=== PATIENT | female | born 1945 | race Caucasian/White ===

== ENCOUNTER 2020-08-24 13:20 | Emergency (ER) | payer OTHER, MEDICAID, SELFPAY ==
[2020-08-24 13:29] VITALS: BP 107/67; BP 114/64; PULSE 67; PULSE 68; RESP 16; TEMP 37.2; O2SAT 97; BMI 20.9
--- NOTE | 2020-08-24 13:45 | CT_ITS ---
EXAMINATION: CT HEAD WITHOUT CONTRAST CT CERVICAL SPINE WITHOUT CONTRAST CLINICAL INFORMATION: Fall COMPARISON: 12/11/2019 and 12/29/2010 TECHNIQUE: Multidetector CT imaging of the head and cervical spine was performed without the use of intravenous contrast. Multiplanar reformats are reviewed. DLP: 1241 mGy-cm. FINDINGS: There is no evidence of acute intracranial hemorrhage or territorial infarction. No abnormal mass effect or midline shift is seen. Lopez to white matter differentiation is well preserved. No extra-axial fluid collections are identified. The ventricles are normal in size. Opdu-mn-zqdspcnq chronic white matter microangiopathic changes redemonstrated. Cavernous carotid calcifications. The osseous structures and soft tissues are normal. The mastoid air cells and visualized portions of the paranasal sinuses are well-aerated. Atlantooccipital alignment is maintained. Stable levocurvature of the cervical spine with hypertrophic facet arthropathy on the right, bulky from C3 through C7. Marked discogenic degenerative disease at C5-C6 and C6-C7.. No acute fracture or subluxation. Vertebral body heights are maintained. The cervicomedullary junction and spinal cord are grossly unremarkable. The paraspinal soft tissues are unremarkable. Again seen is a 4 mm nodule at the left lung apex, stable from 12/11/2019 but new from 2010.. CT/CT cervical spine wo con IMPRESSION: No acute intracranial pathology. No cervical spine fracture or subluxation. Stable 4 mm nodule at the left lung apex since November 2019.
--- NOTE | 2020-08-24 14:07 | ED.FALL ---
HPI - Fall General Chief Complaint: Fall Stated Complaint: FALL, HIT HEAD Time Seen by Provider: 08/24/20 13:45 Source: patient Mode of arrival: EMS Limitations: no limitations History of Present Illness HPI Narrative: 74-year-old female came in by ambulance from a [facility], witnessed fall by staff patient was sitting in the wheelchair trying to reach out to a table fell forward hitting her forehead on the edge of the table causing laceration to the right side forehead, patient declined any LOC. complaint: fall Onset (ago): hour(s) (2) Fall from: wheelchair Fall witnessed: yes, by living facility staff Place fall occurred: [facility] Loss of consciousness: none Prolonged down time: no Symptoms prior to fall: none Related Data Allergies Allergy/AdvReac Type Severity Reaction Status Date / Time aspirin [ASPIRIN] Allergy Mild UNKNOWN Unverified 07/10/20 15:20 lisinopril Allergy Unknown cough Verified 12/12/14 00:00 aspirin Allergy Unknown Uncoded 12/27/19 00:00 Review of Systems Review of Systems: All other systems are reviewed and are negative Constitutional: Reports as per HPI and Reports no additional constitutional complaints Eyes: Reports as per HPI and Reports no additional eye complaints Reports system reviewed and no additional complaints, except as documented Cardiovascular: Reports as per HPI and Reports no additional cardiovascular complaints Respiratory: Reports as per HPI and Reports no additional respiratory complaints Gastrointestinal: Reports as per HPI and Reports no additional gastrointestinal complaints Genitourinary: Reports no additional female genitourinary complaints Musculoskeletal: Reports no additional musculoskeletal complaints Skin/Breast: Reports system reviewed and no additional complaints, except as docu Psychiatric: Reports no additional psychiatric complaints Endocrine: Reports no additional endocrine complaints Hematologic/Lymphatic: Reports no additional hematologic/lymphatic complaints Allergic/Immunologic: Reports no additional allergic/immunologic complaints Reports system reviewed and no additional complaints, except as documented and Reports Abnormal speech present [facility] Past Medical History Medical History Osteoarthritis Parkinson disease Social History Social History Alcohol intake: unknown Smoking Status: Never smoker Use of substances other than those prescribed or required for medical reasons: No Advance Directives: No Advance Directives Information Provided: No Physical Exam Vital Signs: Vital Signs: Vital Signs Temp Pulse Resp BP Pulse Ox 08/24/20 14:23 103/73 08/24/20 13:29 98.9 F 67 16 107/67 97 Body Mass Index 20.9 vital signs have been reviewed as normal and appeared to be correct. Blood pressure normal. Heart rate normal. Respiration rate normal. Temperature normal. Oxygen saturation normal. Appearance: Alert. Oriented X3. No acute distress. Head: Normal external exam. Normocephalic. 4 cm laceration to the right side of forehead, no active bleeding, no step-off, Bonita is not involved No Silverman signs noted. No raccoon eyes noted Eyes: PERRLA. EOMI. Conjunctiva and sclera normal. Eyelids normal. ENT: EAC normal. TM's Normal. Pharynx normal. Uvula midline. Moist mucous membranes. No trismus noted. No drooling noted. No muffled voice noted. Neck: Normal inspection. Neck supple. FROM. No adenopathy. Thyroid Normal. No meningeal signs. No neck mass noted. CVS: Normal heart rate and rhythm. Heart sound normal. No murmurs noted. Pulses normal throughout. Respiratory: No respiratory distress. Painless inspiration. Breath sounds normal. No wheezes/rales/rhonchi noted. Chest nontender. No accessory muscle usage noted or decreased air movement noted. Abdomen: Soft and nontender. Bowel sounds normal in all 4 quadrants. No distention noted. No organomegaly noted. No visible injury noted. Back: No CVA tenderness. Full range of motion noted. Skin: Skin warm and dry. Normal skin color. Normal skin turgor. No rashes/lesions/lacerations noted. Extremities: No lower extremity edema. Extremities exhibit normal range of motion. Extremities nontender. left knee with superficial abrasion but full range of motion with no deformity neurovascularly intact. Neuro: Oriented X 3. No motor deficit. No sensory deficit. Reflexes normal. Procedures Laceration Laceration 1: Site: face Side (If applicable): right Size (cm): 4 Description: linear and clean Depth: simple, single layer Skin layer closed with: other ( Dermabond) MDM - Fall MDM Narrative Medical decision making narrative: Assessment and plan. 74-year-old female who had a mechanical fall witnessed at the [facility], patient had normal baseline neurological exam was GCS 15, CT of the head/ C-spine unremarkable. Right forehead laceration that was repaired with Dermabond refer to procedure note. tetanus booster update. Imaging Data head/ C-spine CT: Radiologist's impression: No acute intracranial pathology. No cervical spine fracture or subluxation. Stable 4 mm nodule at the left lung apex since November 2019. Discharge Plan Discharge Clinical Impression: Superficial laceration of face Accident due to mechanical fall without injury Qualifiers: Encounter type: initial encounter Qualified Code(s): W19.XXXA - Unspecified fall, initial encounter Closed head injury Qualifiers: Encounter type: initial encounter Qualified Code(s): S09.90XA - Unspecified injury of head, initial encounter Patient Disposition: [facility] Instructions: Head Injury (ED), Facial Laceration (ED) Referrals: Heber Phipps DO [Primary Care Provider] - 2 days
[2020-08-24 14:23] VITALS: BP 103/73
--- NOTE | 2020-08-24 15:26 | PC.NURSE ---
PATIENT TDAP (IM INJECTION) DID NOT SCAN PROPERLY. HAD TO MANUALLY ENTER NUMBER.
== END 2020-08-24 17:00 | disposition skilled nursing facility (03) ==
PROVIDERS: Emergency Provider Emergency Medicine; PCP Student in an Organized Health Care Education/Training Program
DX: S01.91XA Laceration without foreign body of unspecified part of head, initial encounter (principal); M54.2 Cervicalgia; G44.309 Post-traumatic headache, unspecified, not intractable; M54.5 Low back pain; W01.0XXA Fall on same level from slipping, tripping and stumbling without subsequent striking against object, initial encounter; Y93.01 Activity, walking, marching and hiking; Y92.009 Unspecified place in unspecified non-institutional (private) residence as the place of occurrence of the external cause; Y99.9 Unspecified external cause status; Z23 Encounter for immunization
CPT/HCPCS: 12013; 70450; 72125; 90471; 90700; 99284; 99285

== ENCOUNTER 2021-09-04 12:09 | Emergency (ER) | payer OTHER, MEDICAID, SELFPAY ==
--- NOTE | ~2021-09-04 | XR_ITS ---
EXAMINATION: XR CHEST CLINICAL INFORMATION: A LOC COMPARISON: December 11, 2019 TECHNIQUE: AP portable view of the chest was obtained. FINDINGS: There is bilateral hilar disease present with bronchial wall thickening with the appearance of pulmonary edema of cardiogenic or noncardiogenic etiology. Heart normal size. No pneumothorax or pleural effusion identified. XR/XR chest 1V IMPRESSION: Bilateral central disease with bronchial wall thickening consistent with pulmonary edema of cardiogenic or noncardiogenic etiology.
[2021-09-04 12:25] VITALS: BP 97/50; PULSE 60; RESP 21; TEMP 36.8; O2SAT 96; BMI 22.7
--- NOTE | 2021-09-04 12:30 | ECG_ITS ---
Test Reason : HYPOTENSIVE Blood Pressure : / mmHG Vent. Rate : 061 BPM Atrial Rate : 061 BPM P-R Int : 158 ms QRS Dur : 110 ms QT Int : 442 ms P-R-T Axes : 039 030 015 degrees QTc Int : 444 ms Normal sinus rhythm Incomplete right bundle branch block Borderline ECG When compared with ECG of 14-DEC-2019 02:38, Previous ECG has undetermined rhythm, needs review Questionable change in QRS axis ST no longer depressed in Inferior leads ST no longer depressed in Anterolateral leads T wave amplitude has increased in Lateral leads Referred By: Sav Thurston Electronically Signed By:SHARDA TORRES MD
--- NOTE | 2021-09-04 12:33 | ED.GENADULT ---
HPI - General Adult General Chief complaint: General Medical Stated complaint: ams, hypotensive Time Seen by Provider: 09/04/21 12:30 Source: EMS and RN notes reviewed Limitations: altered mental status History of Present Illness HPI narrative: This is a 75-year-old female who sent in from a alf facility/dementia Unit for increased lethargy. The patient usually his verbal and participate in activities but this morning was found to not be talking and seemed lethargic. EMS reports that her blood pressure was initially low and she was given a normal saline bolus with improvement in her blood pressure. EMS reported that her pre-hospital EKG showed an incomplete right bundle-branch block otherwise appeared normal. She has not had any known fever. Patient herself is unable to give any history due to mental status Related Data Home Medications Medication Instructions Recorded Confirmed calcium citrate 250 mg PO DAILY 09/04/21 09/04/21 carbidopa 25 mg-levodopa 100 mg 2 tab PO Q4H 09/04/21 09/04/21 tablet (Sinemet) carvedilol 6.25 mg tablet 6.25 mg PO BID 09/04/21 09/04/21 docusate sodium 100 mg capsule 100 mg PO BEDTIME 09/04/21 09/04/21 (Colace) gabapentin 300 mg capsule 300 mg PO BEDTIME 09/04/21 09/04/21 glucosamine 375 ga-qzbweidqv-ack 1 tab PO BID 09/04/21 09/04/21 no1 500 mg-C 15 mg-vahe 0.5 mg tablet (Ergwkxfvlsn-Fxijgrxcqgz-ZQR Complex) ivermectin 3 mg tablet 12 mg PO ONCE 09/04/21 09/04/21 lorazepam 0.5 mg tablet (Ativan) 0.5 mg PO TID 09/04/21 09/04/21 magnesium gluconate 500 mg tablet 250 mg PO BEDTIME 09/04/21 09/04/21 melatonin 3 mg tablet 6 mg PO BEDTIME 09/04/21 09/04/21 multivitamin 1 tab PO DAILY 09/04/21 09/04/21 nutritional supplements 1 ea PO BID@1000,1600 09/04/21 09/04/21 nystatin 100,000 unit/gram topical 1 appl TOPICAL BID PRN 09/04/21 09/04/21 powder omeprazole 20 mg capsule,delayed 20 mg PO DAILY@0630 09/04/21 09/04/21 release potassium chloride 10 mEq 10 meq PO DAILY 09/04/21 09/04/21 tablet,extended release pramipexole 0.5 mg tablet 0.5 mg PO TID 09/04/21 09/04/21 quetiapine 25 mg tablet (Seroquel) 25 mg PO TID 09/04/21 09/04/21 risedronate 35 mg tablet (Actonel) 35 mg PO FR 09/04/21 09/04/21 ropinirole 1 mg tablet 1 mg PO QID 09/04/21 09/04/21 sertraline 50 mg tablet 50 mg PO DAILY 09/04/21 09/04/21 simethicone 125 mg capsule (Gas 250 mg PO BID 09/04/21 09/04/21 Relief (simethicone)) Allergies Allergy/AdvReac Type Severity Reaction Status Date / Time aspirin [ASPIRIN] Allergy Mild UNKNOWN Unverified 07/10/20 15:20 lisinopril Allergy Unknown cough Verified 12/12/14 00:00 aspirin Allergy Unknown Uncoded 12/27/19 00:00 Review of Systems Review of Systems: Yes Unobtainable due to mental condition Constitutional: Constitutional: Reports weakness Neurologic: Denies Sensory deficit (Neuro) and Reports weakness Comments: Speaking less PMFSH Past Medical History Medical History Osteoarthritis Parkinson disease Social History Social History Alcohol intake: unknown Advance Directives: No Advance Directives Information Provided: No Physical Exam Vital Signs: Vital Signs: Last Vital Signs Temp 98.8 F 09/04/21 14:15 Pulse 67 09/04/21 14:21 Resp 17 09/04/21 14:21 BP 137/63 09/04/21 14:21 Pulse Ox 98 09/04/21 14:21 Body Mass Index 22.7 Const: Other: Patient noncooperative, does not keep eyes open, closes them tightly upon attempted examination. Does not open mouth. Visualized teeth and tongue seem somewhat dry General: no acute distress and alert HENMT: Head: Yes normal to inspection Eyes: General: appearance normal, both eyes and all related structures Eyelids: Yes eyelids normal Conjunctivae: conjunctivae normal Pupils: Equal, round and reactive pupils present Neck: Neck: Yes normal visual inspection and Yes supple Chest: Chest palpation & inspection: normal inspection of the chest Resp: Effort & Inspection: normal respiratory effort Auscultation: clear to auscultation bilaterally Cardio: Rate: regular rate Rhythm: regular rhythm Heart sounds: S1 normal heart sound present, S2 normal heart sound present, no gallops, no murmurs and no rubs GI: Palpation (GI): Soft to palpation, nontender and Other GI palpation findings present (Non-distended) Auscultation: normal bowel sounds Skin: General skin exam: no rashes or lesions noted Neuro: General: no focal motor deficits and CN's II-XI intact bilaterally Cranial nerves: Yes Equal, round and reactive pupils present Cognition (Neuro): normal cognition Motor exam (neuro): 5/5 motor strength present throughout Sensory Exam: No Sensory deficit (Neuro) Extrem: General: Yes normal to inspection and Yes no pedal edema Psych: Appearance: grossly normal Affect: normal affect Medical Decision Making MDM Narrative Medical decision making narrative: Patient with borderline hypotension, improved after normal saline IV bolus. Patient also noted to be more lethargic today. Patient's primary care physician at her facility, Dr. Dyer, called and stated that she has been getting worse and feeling for some time. He stated that if the workup was negative and that of her vital signs improved, that discharge back to her facility would be recommended patient has no evidence of UTI, pneumonia. BUN to creatinine ratio is mildly elevated but she has been rehydrated with normal saline. Lab Data Lab results reviewed: Yes I reviewed the patient's lab results. Result diagrams: 09/04/21 12:54 09/04/21 12:54 Labs: Lab Results 09/04/21 09/04/21 09/04/21 Range/Units 12:54 12:54 12:58 WBC 7.2 (4.8-10.8) X10*3/uL RBC 3.39 L (4.20-5.50) X10*6/uL Hgb 10.1 L (12.0-16.0) g/dl Hct 31.8 L (37.0-47.0) % MCV 93.8 (80.0-98.0) fL MCH 29.8 (27.0-33.0) pg MCHC 31.8 (31.0-35.0) g/dl RDW 13.6 (11.0-16.0) % Plt Count 204 (160-400) X10*3/uL MPV 9.8 (9.4-12.3) fL Immature Gran % (Auto) 0.3 (0.0-0.4) % Neut % (Auto) 66.7 (45-73) % Lymph % (Auto) 21.1 (20-40) % [place] % (Auto) 11.3 H (2-11) % Eos % (Auto) 0.3 (0-4) % Baso % (Auto) 0.3 (0-2) % Lymph # (Auto) 1.5 (1.2-4.9) X10*3/uL [place] # (Auto) 0.8 (0.1-1.2) X10*3/uL Eos # (Auto) 0.0 (0.0-0.4) X10*3/uL Baso # (Auto) 0.0 (0.0-0.2) X10*3/uL Abs Immat Gran (auto) 0.02 (0.00-0.03) X10*3/uL Absolute Neuts (auto) 4.8 (2.0-8.3) x10*3/uL Absolute Nucleated RBC 0.000 (0.0-0.012) X10*3/uL Nucleated RBC % (auto) 0.0 (0.0-0.2) /100WBC Sodium 140 (135-145) mmol/L Potassium 3.7 (3.3-5.1) mmol/L Chloride 108 (96-108) mmol/L Carbon Dioxide 23 (22-29) mmol/L Anion Gap 13 (12-20) BUN 30 H (9-16) mg/dL Creatinine 0.72 (0.5-1.4) mg/dL Estim Creat Clear Calc 50.0 Estimated GFR > 60 Random Glucose 80 (60-115) mg/dL Calcium 8.3 L (8.4-10.2) mg/dL Total Bilirubin 1.8 H (0.0-1.0) mg/dL AST 6 (5-31) U/L ALT < 6 (0-31) U/L Alkaline Phosphatase 61 (39-117) U/L Total Protein 5.6 L (6.5-8.0) g/dL Albumin 3.3 L (3.5-5.0) g/dL Urine Color YELLOW Urine Appearance CLEAR Urine pH 6.0 (5.0-8.0) Ur Specific [place] >= 1.030 H (1.005-1.025) Urine Protein TRACE (NEG-TRACE) MG/DL Urine Glucose (UA) NEG (NEG) MG/DL Urine Ketones 15 (NEG) MG/DL Urine Blood NEG (NEG) Urine Nitrite NEG (NEG) Ur Leukocyte Esterase NEG (NEG) COVID-19 (YUSEF) (Negative) COVID-19 Clin Com 09/04/21 Range/Units 14:19 WBC (4.8-10.8) X10*3/uL RBC (4.20-5.50) X10*6/uL Hgb (12.0-16.0) g/dl Hct (37.0-47.0) % MCV (80.0-98.0) fL MCH (27.0-33.0) pg MCHC (31.0-35.0) g/dl RDW (11.0-16.0) % Plt Count (160-400) X10*3/uL MPV (9.4-12.3) fL Immature Gran % (Auto) (0.0-0.4) % Neut % (Auto) (45-73) % Lymph % (Auto) (20-40) % [place] % (Auto) (2-11) % Eos % (Auto) (0-4) % Baso % (Auto) (0-2) % Lymph # (Auto) (1.2-4.9) X10*3/uL [place] # (Auto) (0.1-1.2) X10*3/uL Eos # (Auto) (0.0-0.4) X10*3/uL Baso # (Auto) (0.0-0.2) X10*3/uL Abs Immat Gran (auto) (0.00-0.03) X10*3/uL Absolute Neuts (auto) (2.0-8.3) x10*3/uL Absolute Nucleated RBC (0.0-0.012) X10*3/uL Nucleated RBC % (auto) (0.0-0.2) /100WBC Sodium (135-145) mmol/L Potassium (3.3-5.1) mmol/L Chloride (96-108) mmol/L Carbon Dioxide (22-29) mmol/L Anion Gap (12-20) BUN (9-16) mg/dL Creatinine (0.5-1.4) mg/dL Estim Creat Clear Calc Estimated GFR Random Glucose (60-115) mg/dL Calcium (8.4-10.2) mg/dL Total Bilirubin (0.0-1.0) mg/dL AST (5-31) U/L ALT (0-31) U/L Alkaline Phosphatase (39-117) U/L Total Protein (6.5-8.0) g/dL Albumin (3.5-5.0) g/dL Urine Color Urine Appearance Urine pH (5.0-8.0) Ur Specific [place] (1.005-1.025) Urine Protein (NEG-TRACE) MG/DL Urine Glucose (UA) (NEG) MG/DL Urine Ketones (NEG) MG/DL Urine Blood (NEG) Urine Nitrite (NEG) Ur Leukocyte Esterase (NEG) COVID-19 (YUSEF) Negative (Negative) COVID-19 Clin Com See Note Imaging Data Chest x-ray: Radiologist's impression: IMPRESSION: Bilateral central disease with bronchial wall thickening consistent with pulmonary edema of cardiogenic or noncardiogenic etiology. ECG Data Attestation: I personally reviewed and interpreted this ECG as follows: Interpretation: Sinus rhythm with a rate of 61. Incomplete right bundle-branch block. No michelle ST elevation or depression. No ectopy Discharge Plan Discharge Clinical Impression: Dehydration Patient Disposition: Xfer LTC Instructions: Dehydration (ED) Additional Instructions: Try to encourage p.o. intake including fluids. Follow-up with primary care physician. Return for any worsened symptoms. Prescriptions: No Action multivitamin Tablet 1 tab PO DAILY RF: 0 quetiapine [Seroquel] 25 mg Tablet 25 mg PO TID RF: 0 carvedilol 6.25 mg Tablet 6.25 mg PO BID RF: 0 ropinirole 1 mg Tablet 1 mg PO QID RF: 0 Resource Breeze Liquid 1 ea PO BID@1000,1600 RF: 0 simethicone [Gas Relief (simethicone)] 125 mg Capsule 250 mg PO BID RF: 0 potassium chloride 10 mEq Tablet Extended Release 10 meq PO DAILY RF: 0 melatonin 3 mg Tablet 6 mg PO BEDTIME RF: 0 magnesium gluconate 500 mg Tablet 250 mg PO BEDTIME RF: 0 pramipexole 0.5 mg Tablet 0.5 mg PO TID RF: 0 lorazepam [Ativan] 0.5 mg Tablet 0.5 mg PO TID RF: 0 docusate sodium [Colace] 100 mg Capsule 100 mg PO BEDTIME RF: 0 gabapentin 300 mg Capsule 300 mg PO BEDTIME RF: 0 omeprazole [Prilosec] 20 mg Capsule,Delayed Release(Dr/Ec) 20 mg PO DAILY@0630 RF: 0 nystatin 100,000 unit/gram Powder 1 appl TOPICAL BID PRN (Reason: ALTERATION IN SKIN INTEGRITY) RF: 0 carbidopa-levodopa [Sinemet] 25-100 mg Tablet 2 tab PO Q4H RF: 0 sertraline 50 mg Tablet 50 mg PO DAILY RF: 0 risedronate [Actonel] 35 mg Tablet 35 mg PO FR RF: 0 calcium citrate 250 mg calcium Tablet 250 mg PO DAILY RF: 0 Qknxmgujmln-Sjxvs-IUE Complex 080-919-11-0.5 mg Tablet 1 tab PO BID RF: 0 ivermectin 3 mg Tablet 12 mg PO ONCE RF: 0
[2021-09-04] MEDS: 0.9 % Sodium Chloride 500 ML IV ×2 (12:37→14:21)
[2021-09-04 13:04] LABS: MANUAL DIFF FLAG NO
[2021-09-04 13:06] LABS: Basophils Percent Auto 0.3 % (0-2); Eosinophils Percent Auto 0.3 % (0-4); Hematocrit 31.8 % (37.0-47.0); Hemoglobin 10.1 g/dl (12.0-16.0); Imm Gran Abs Auto 0.02 X10*3/uL (0.00-0.03); Imm Gran Pct Auto 0.3 % (0.0-0.4); Lymphocytes Absolute Auto 1.5 X10*3/uL (1.2-4.9); Lymphocytes Percent Auto 21.1 % (20-40); Mean Corpuscular HGB Conc 31.8 g/dl (31.0-35.0); Mean Corpuscular Hemoglobin 29.8 pg (27.0-33.0); Mean Corpuscular Volume 93.8 fL (80.0-98.0); Mean Platelet Volume 9.8 fL (9.4-12.3); Monocytes Absolute Auto 0.8 X10*3/uL (0.1-1.2); Monocytes Percent Auto 11.3 % (2-11); Neutrophils Absolute Auto 4.8 x10*3/uL (2.0-8.3); Neutrophils Percent Auto 66.7 % (45-73); Platelet Count 204 X10*3/uL (160-400); Red Blood Count 3.39 X10*6/uL (4.20-5.50); Red Cell Distribution Width 13.6 % (11.0-16.0); White Blood Count 7.2 X10*3/uL (4.8-10.8)
[2021-09-04 13:20] LABS: Appearance Urine CLEAR; Color Urine YELLOW; Glucose Urine UA NEG (NEG); Leukocyte Esterase Urine NEG (NEG); Nitrite Urine NEG (NEG); Specific Gravity - Urine >= 1.030 (1.005-1.025); Urine Blood NEG (NEG); Urine Ketones 15 MG/DL (NEG); Urine Protein TRACE MG/DL (NEG-TRACE)
[2021-09-04 13:23] LABS: Alanine Aminotransferase < 6 U/L (0-31); Albumin Level 3.3 g/dL (3.5-5.0); Alkaline Phosphatase 61 U/L (39-117); Anion Gap 13 (12-20); Aspartate Amino Transferase 6 U/L (5-31); Bilirubin Total 1.8 mg/dL (0.0-1.0); Blood Urea Nitrogen 30 mg/dL (9-16); Calcium 8.3 mg/dL (8.4-10.2); Carbon Dioxide 23 mmol/L (22-29); Chloride 108 mmol/L (96-108); Estimated Glomerular Filt Rate > 60; Glucose Random 80 mg/dL (60-115); Potassium 3.7 mmol/L (3.3-5.1); Sodium 140 mmol/L (135-145); Total Protein 5.6 g/dL (6.5-8.0)
--- NOTE | 2021-09-04 13:36 | PHA.MEDREC ---
Pharmacy Consult ? Medication Reconciliation Pharmacy has completed the medication reconciliation. patient came from [facility] with a medication list. Patient has an order for Ivermectin 12 mg for a rash. Last dose was given 09/02/2021, and looks like next dose is to be given 09/16/2021 Chantal Archer, JoseD
[2021-09-04 14:15] VITALS: BP 89/52; PULSE 52; RESP 14; TEMP 37.1; O2SAT 96
[2021-09-04 14:21] VITALS: BP 137/63; PULSE 67; RESP 17; O2SAT 98
[2021-09-04 14:51] LABS: COVID-19 Test Negative (Negative); IDNOW Serial# 9DD0AD1C
== END 2021-09-04 18:41 ==
PROVIDERS: Emergency Provider Emergency Medicine; PCP Family Medicine
DX: E86.0 Dehydration (principal); G20 Parkinson's disease; F02.80 Dementia in other diseases classified elsewhere, unspecified severity, without behavioral disturbance, psychotic disturbance, mood disturbance, and anxiety; I45.10 Unspecified right bundle-branch block; Z79.899 Other long term (current) drug therapy; Z20.822 Contact with and (suspected) exposure to COVID-19
CPT/HCPCS: 36415; 71045; 80053; 81003; 85025; 87635; 93005; 96360; 96361; 99284

== ENCOUNTER 2022-01-13 10:28 | Emergency (ER) | payer OTHER, MEDICAID, SELFPAY ==
[2022-01-13 10:37] VITALS: BP 92/60; PULSE 60; O2SAT 84
[2022-01-13] MEDS: Naloxone HCl 0.4 MG/ML VIAL 0.2 MG IVPUSH (10:40)
[2022-01-13 10:41] VITALS: BP 103/64; PULSE 63; RESP 4; TEMP 36.1; O2SAT 98; BMI 17.6
[2022-01-13 10:49] LABS: Glucose, Whole Blood 83 mg/dL (60-115)
--- NOTE | 2022-01-13 10:49 | ED_ITS ---
HPI - General Adult General Chief complaint: Upper Respiratory Symptoms Stated complaint: SOB,80% RA TO 99% ON 15L NRB Time Seen by Provider: 01/13/22 10:37 Source: family and EMS Mode of arrival: EMS Limitations: altered mental status History of Present Illness HPI narrative: History by EMS and brother Michael. Patient with end stage parkinsonism, degenerative joint disease, dementia and failure to thrive on hospice. She received 5mg of morphine and ativan and had respiratory failure and because her MOLST was not updated the patient was transferred. Discussed with brother and I filled out the MOLST Onset (ago): minute(s) Severity: severe Related Data Home Medications Medication Instructions Recorded Confirmed calcium citrate 250 mg PO DAILY 09/04/21 09/04/21 carbidopa 25 mg-levodopa 100 mg 2 tab PO Q4H 09/04/21 09/04/21 tablet (Sinemet) carvedilol 6.25 mg tablet 6.25 mg PO BID 09/04/21 09/04/21 docusate sodium 100 mg capsule 100 mg PO BEDTIME 09/04/21 09/04/21 (Colace) gabapentin 300 mg capsule 300 mg PO BEDTIME 09/04/21 09/04/21 glucosamine 375 by-zxxutftqb-tzb 1 tab PO BID 09/04/21 09/04/21 no1 500 mg-C 15 mg-vahe 0.5 mg tablet (Qgtngswrwiv-Tdmzfmltsko-BMP Complex) ivermectin 3 mg tablet 12 mg PO ONCE 09/04/21 09/04/21 lorazepam 0.5 mg tablet (Ativan) 0.5 mg PO TID 09/04/21 09/04/21 magnesium gluconate 500 mg tablet 250 mg PO BEDTIME 09/04/21 09/04/21 melatonin 3 mg tablet 6 mg PO BEDTIME 09/04/21 09/04/21 multivitamin 1 tab PO DAILY 09/04/21 09/04/21 nutritional supplements 1 ea PO BID@1000,1600 09/04/21 09/04/21 nystatin 100,000 unit/gram topical 1 appl TOPICAL BID PRN 09/04/21 09/04/21 powder omeprazole 20 mg capsule,delayed 20 mg PO DAILY@0630 09/04/21 09/04/21 release potassium chloride 10 mEq 10 meq PO DAILY 09/04/21 09/04/21 tablet,extended release pramipexole 0.5 mg tablet 0.5 mg PO TID 09/04/21 09/04/21 quetiapine 25 mg tablet (Seroquel) 25 mg PO TID 09/04/21 09/04/21 risedronate 35 mg tablet (Actonel) 35 mg PO FR 09/04/21 09/04/21 ropinirole 1 mg tablet 1 mg PO QID 09/04/21 09/04/21 sertraline 50 mg tablet 50 mg PO DAILY 09/04/21 09/04/21 simethicone 125 mg capsule (Gas 250 mg PO BID 09/04/21 09/04/21 Relief (simethicone)) Allergies Allergy/AdvReac Type Severity Reaction Status Date / Time aspirin [ASPIRIN] Allergy Mild UNKNOWN Unverified 07/10/20 15:20 lisinopril Allergy Unknown cough Verified 12/12/14 00:00 aspirin Allergy Unknown Uncoded 12/27/19 00:00 Review of Systems Review of Systems: Yes Unobtainable due to mental status [facility] Past Medical History Medical History Osteoarthritis Parkinson disease Social History Social History Alcohol intake: unknown Patient Tobacco Use Status: Tobacco use Unknown Use of substances other than those prescribed or required for medical reasons: No Advance Directives: Yes Advance Directives on File: Yes Advance Directives Date on File: 01/13/22 Physical Exam ED Vital Signs: Vital Signs - 24 hr 01/13/22 10:41 01/13/22 11:14 Temperature 97 F Pulse Rate 63 58 Respiratory Rate 4 L 12 Blood Pressure 103/64 Pulse Oximetry 98 99 BMI result Body Mass Index 17.6 Const Other: Frail cachectic, with respirations of 6 HENMT Other: pinpoint pupils Resp Auscultation: clear to auscultation bilaterally Cardio Rate: regular rate Rhythm: regular rhythm Heart sounds: S1 normal heart sound present and S2 normal heart sound present GI Other: scaphoid non tender Neuro Other: arousable to painful stimuli Psych Other: minimally responsive Course Reevaluation(s) Reevaluation #1: 0.2mg of narcan increased breathing and arousal Time: 10:55 Reevaluation #2: patient breathing comfortably. Will dc to intermediate with updated MOLST Time: 11:49 Medical Decision Making Lab Data Labs: Lab Results 01/13/22 Range/Units 10:41 POC Glucose 83 (60-115) mg/dL Discharge Plan Discharge Clinical Impression: Morphine overdose Patient Disposition: Home, Self-Care Prescriptions: No Action multivitamin Tablet 1 tab PO DAILY 0RF quetiapine [Seroquel] 25 mg Tablet 25 mg PO TID 0RF carvedilol 6.25 mg Tablet 6.25 mg PO BID 0RF ropinirole 1 mg Tablet 1 mg PO QID 0RF Resource Breeze Liquid 1 ea PO BID@1000,1600 0RF Rx Instructions: 8 OZ AT 1000 AND 1600 simethicone [Gas Relief (simethicone)] 125 mg Capsule 250 mg PO BID 0RF potassium chloride 10 mEq Tablet Extended Release 10 meq PO DAILY 0RF melatonin 3 mg Tablet 6 mg PO BEDTIME 0RF magnesium gluconate 500 mg Tablet 250 mg PO BEDTIME 0RF pramipexole 0.5 mg Tablet 0.5 mg PO TID 0RF lorazepam [Ativan] 0.5 mg Tablet 0.5 mg PO TID 0RF docusate sodium [Colace] 100 mg Capsule 100 mg PO BEDTIME 0RF gabapentin 300 mg Capsule 300 mg PO BEDTIME 0RF omeprazole [Prilosec] 20 mg Capsule,Delayed Release(Dr/Ec) 20 mg PO DAILY@0630 0RF nystatin 100,000 unit/gram Powder 1 appl TOPICAL BID PRN (Reason: ALTERATION IN SKIN INTEGRITY) 0RF carbidopa-levodopa [Sinemet] 25-100 mg Tablet 2 tab PO Q4H 0RF sertraline 50 mg Tablet 50 mg PO DAILY 0RF risedronate [Actonel] 35 mg Tablet 35 mg PO FR 0RF calcium citrate 250 mg calcium Tablet 250 mg PO DAILY 0RF Lxpevskexdt-Ubhgx-RRT Complex 733-511-73-0.5 mg Tablet 1 tab PO BID 0RF ivermectin 3 mg Tablet 12 mg PO ONCE 0RF Rx Instructions: NEXT DOSE 09/16/2021 Referrals: Dudley Phipps MD [Primary Care Provider] - 1 week
[2022-01-13] MEDS: ondansetron HCL 4 MG/2 ML VIAL IVPUSH (10:53)
[2022-01-13 11:14] VITALS: PULSE 58; RESP 12; O2SAT 99
--- NOTE | 2022-01-13 11:16 | PC.NURSE ---
Pt arrived via ambulance obtunded with resp 4/min. Pt apparently on hospice, Cindy from case management spoke to hospice nurse via telephone. Son called and spoke with Dr Teixeira regarding pt and plan of no interventions. Will monitor pt and send back to [facility]. Pt initialy given Narcan 0.2mg, at this time comfortable breathing at 10/min, sinus mingo at 58
--- NOTE | 2022-01-13 12:57 | MHC.CM.ED ---
Received case management consult from Dr Teixeira. Patient came to the ER from [facility]. Patient is on hospice with [facility]. Patient was transferred to the ER from [facility] due to low oxygen sat because the MOLST on record at their facility does not have the patient listed as DNR. New MOLST completed with patient's brother/HCP, Michael via telephone. Patient will return to [facility] via BLS at 130pm. Mary from [facility] made aware via telephone at [phone].
== END 2022-01-13 13:41 | disposition skilled nursing facility (03) ==
PROVIDERS: Emergency Provider Emergency Medicine; PCP Family Medicine
DX: T40.2X1A Poisoning by other opioids, accidental (unintentional), initial encounter (principal); G20 Parkinson's disease; Y92.9 Unspecified place or not applicable; Z79.899 Other long term (current) drug therapy
CPT/HCPCS: 82947; 96374; 96375; 99284; J2405